=== PATIENT | female | born 1960 | race Caucasian/White ===

== ENCOUNTER 2022-12-17 16:21 | Emergency (ER) | payer BC ==
[2022-12-17] MEDS ORDERED: Sodium Chloride 0.9% 1,000 ML IV ONE (16:55)
[2022-12-17] MEDS ORDERED: Ondansetron 4 MG/2 ML SDV IVPUSH ONE (16:55)
[2022-12-17] MEDS ORDERED: HYDROmorphone 0.5 MG/0.5 ML Syringe IVPUSH ONE ×3 (16:55→22:15)
[2022-12-17 18:13] LABS: BASOPHILS ABSOLUTE AUTO 0.02 K/mm3 (0.01-0.08); BASOPHILS PERCENT AUTO 0.3 % (0.1-1.2); EOSINOPHILS ABSOLUTE AUTO 0.06 K/mm3 (0.04-0.36); EOSINOPHILS PERCENT AUTO 0.9 (0.7-5.8); HEMATOCRIT 34.8 % (34.1-44.9); HEMOGLOBIN 11.1 gm/dl (11.2-15.7); IMMATURE GRAN ABSOLUTE AUTO 0.01 K/mm3 (0.00-0.10); IMMATURE GRAN PERCENT AUTO 0.1 % (<=1.0); LYMPHOCYTES ABSOLUTE AUTO 1.49 K/mm3 (1.18-3.74); LYMPHOCYTES PERCENT AUTO 21.7 % (19.3-51.7); MEAN CORPUSCULAR HGB CONC 31.9 g/dl (32.2-35.5); MEAN CORPUSCULAR VOLUME 94.1 fl (79.4-94.8); MEAN PLATELET VOLUME 9.1 fl (9.4-12.3); MONOCYTES ABSOLUTE AUTO 0.31 K/mm3 (0.24-0.36); MONOCYTES PERCENT AUTO 4.5 % (4.7-12.5); NEUTROPHILS ABSOLUTE AUTO 4.98 K/mm3 (1.56-6.13); NEUTROPHILS PERCENT AUTO 72.5 % (34.0-71.1); PLATELET COUNT,PLT 276 K/mm3 (182-369); WHITE BLOOD CELL COUNT,WBC 6.87 K/mm3 (3.98-10.04)
[2022-12-17 18:42] LABS: ALBUMIN 3.8 g/dl (3.4-5.0); ANION GAP 15.7 (5-15); BILIRUBIN TOTAL 0.8 mg/dL (0.2-1.0); CALCIUM 9.5 mg/dL (8.5-10.1); CREATININE 1.5 mg/dL (0.55-1.02); EST CRCL DRUG DOSING (CG) 34.09 mL/min; POTASSIUM,K 3.7 mEq/L (3.5-5.1); PROTEIN TOTAL,TP 7.8 g/dl (6.4-8.2)
[2022-12-17] MEDS ORDERED: HYDROmorphone 1 MG/ML Syringe IVPUSH ONE (18:52)
[2022-12-17] MEDS ORDERED: methylPREDNISolone Sodium Succinate 40 MG/1 ML SDV IVPUSH ONE (22:23)
== END 2022-12-17 22:49 | disposition home or self-care (01) ==
LOC: JD.ED 16:21
DX: M48.00 Spinal stenosis, site unspecified (principal); Z88.8 Allergy status to other drugs, medicaments and biological substances
CPT/HCPCS: 36415; 73502; 80053; 83735; 85025; 96361; 96374; 96375; 96376; 99284; J1170; J2405; J7030